=== PATIENT | male | born 1960 | race Caucasian/White ===

== ENCOUNTER 2024-12-06 11:31 | Emergency (ER) | payer OTHER, SELFPAY ==
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
--- OUTSIDE RECORDS SUMMARY | 2024-12-06 11:34 | XMS_ITS | Data Portability ---
Author Organization [facility] [employer], Main Office Address [address] [place] [address] Care Team Providers Care Healthcare Architect Name Role Phone JOSÉ MIGUEL VALERO Primary Care Provider [phone] Assessment Encounter Date Assessment Date Assessment LastModified by Organization Details LastModified Time 03/20/2024 03/20/2024 D/w pt about his findings and further options for him. Will refer pt to Cardio. Risks Vs benefits of Aspirin 81mg po bid with food explained until seen by Cardio. Pt agreed. Educated pt about alarming symptoms to monitor at home and get checked in ED. Pt verbalized understanding it. F/u in few weeks for Annual exam. [email or web address] Not available 03/20/2024 18:02:51 Plan of Treatment Reminders Order Date Submit Date Provider Last Modified By Organization Details Last Modified Time Details Appointments None recorded. Lab None recorded. Referral cardiologis t referral - ? A fib as per screening on 6 lead EKG. Please call patient to schedule an appointment . Thank you. 2024 025 [email or web address] Jl Hyatt MD, [address] [facility], [address], [place], [address], 10:25:37 Procedures None recorded. Surgeries None recorded. Imaging None recorded. Medication Orders None recorded. Patient TargetsNo targets recorded. Patient Instructions Encounter Date Encounter Id Patient Instructions Last Modified By Organization Details Last Modified Time 03/20/2024 [id number] starting a weigh t loss plan: care instructions [email or web address] Not available 03/20/2024 17:35:46 Reason for Referral Barrel Cleaner Referral for Ca rdiac arrhythmia ? A fib as per screening on 6 lead EKG ? A fib as per screening on 6 lead EKG. Please call patient to schedule an appointment. Thank you. Referring Physician: José Miguel Valero, Family Medicine, Encounter Date: 03/20/2024 Results Created Date Observation Date Name Description Value Unit Range Abnormal Flag Note LastModifiedBy Organization Detail LastModifiedTime 11/06/19 21 11/10/2020 TROPO EARNESTINE T, HIGH SENSI TIVIT Y (HS TIARA) troponin T, high sensitivity (hs tiara) 8 NG/L <23 Relat maría Risk: Optim al <6 ng/L; Moder ate: Males 6-22 ng/L, Femal es 6-14 ng/L; High: Males : >22 ng/L, Femal es: >14 ng/L. Refer ence Range : Males <23 ng/L, Femal es <15 ng/L. High Sensi tivit y Tropo earnestine T (hs-T nT) level s excee ding the gende r-spe cific 99th perce ntile upper refer ence limit (male s >22 ng/L, femal es >14 ng/L) may indic ate a recen t acute myoca rdial infar ction howev er, hs-Tn T resul ts shoul d alway s be asses sed in conju nctio n with the patie nt's medic al histo ry, clini kirsty exami natio n, sympt oms of cardi ac ische abiel, elect rocar diogr am resul ts, and/o r other cardi ovasc ular disea se (CVD) diagn ostic findi ngs. [place] tions in hs-Tn T can also be obser dameon in other heart condi tions . To disti nguis h betwe en acute and chron ic hs-Tn T eleva tions , seria l sampl ing and clini kirsty corre latio n is recom abner d for inter preta tion. There is liter ature suppo rting any hs-Tn T >=6 ng/L confe rs incre ased CVD relat maría risk (Olul eye OW, et al. Kim Epide miol. 2013; 23(2) :66-7 3; Selig er SL, et al. Circu latio n. 2017; 135(1 6):14 94-15 05). Not Available [facility] [address] [address] [place], [address], 11/10/2020 21:51:34 11/06/19 21 11/10/2020 B TYPE NATRI URETI C PEPTI DE (BNP) B type natriuretic peptide (BNP) 94 pg/mL <100 normal BNP level s incre ase with age in the gener al popul ation with the highe st value s seen in indiv idual s great er than 75 years of age. Refer ence: J. Am. Kristi. Cardi ol. 2002; 40:97 6-982 . Not Available Daily [facility] [address] [place], [address], 11/10/2020 21:51:33 11/06/19 21 11/10/2020 CBC (INCL UDES DIFF/ PLT) hematocrit 41.9 % 38.5-5 0.0 normal Not Available Daily [facility] [address] [address] [place], [address], 11/10/2020 21:51:31 11/06/19 21 11/10/2020 CBC (INCL UDES DIFF/ PLT) white blood cell count 5.8 thous and/u L 3.8-10 .8 normal Not Available Daily [facility] [address] [address] [place], [address], 11/10/2020 21:51:31 11/06/19 21 11/10/2020 CBC (INCL UDES DIFF/ PLT) red blood cell count 4.80 shantanu on/uL 4.20-5 .80 normal Not Available Daily [facility] [address], [address], 11/10/2020 21:51:31 11/06/19 21 11/10/2020 CBC (INCL UDES DIFF/ PLT) hemoglobin 13.8 g/dL 13.2-1 7.1 normal Not Available [facility] [address] [place], [address], 11/10/2020 21:51:31 11/06/19 21 11/10/2020 CBC (INCL UDES DIFF/ PLT) MCV 87.3 fL 80.0-1 00.0 normal Not Available [address], [address], 11/10/2020 21:51:31 11/06/19 21 11/10/2020 CBC (INCL UDES DIFF/ PLT) MCH 28.8 pg 27.0-3 3.0 normal Not Available [address], [address], 11/10/2020 21:51:31 11/06/19 21 11/10/2020 CBC (INCL UDES DIFF/ PLT) MCHC 32.9 g/dL 32.0-3 6.0 normal Not Available [address], [address], 11/10/2020 21:51:31 11/06/19 21 11/10/2020 CBC (INCL UDES DIFF/ PLT) RDW 13.2 % 11.0-1 5.0 normal Not Available [address], [address], 11/10/2020 21:51:31 11/06/19 21 11/10/2020 CBC (INCL UDES DIFF/ PLT) platelet count 255 thous and/u L 140-40 0 normal Not Available [address], [address], 11/10/2020 21:51:31 11/06/19 21 11/10/2020 CBC (INCL UDES DIFF/ PLT) MPV 9.7 fL 7.5-12 .5 normal Not Available [address], [address], 11/10/2020 21:51:31 11/06/19 21 11/10/2020 CBC (INCL UDES DIFF/ PLT) absolute neutrophils 3381 cells /uL 1500-7 800 normal Not Available [address], [address], 11/10/2020 21:51:31 11/06/19 21 11/10/2020 CBC (INCL UDES DIFF/ PLT) absolute lymphocytes 1566 cells /uL 850-39 00 normal Not Available [address], [address], 11/10/2020 21:51:31 11/06/19 21 11/10/2020 CBC (INCL UDES DIFF/ PLT) absolute monocytes 563 cells /uL 200-95 0 normal Not Available [address], [address], 11/10/2020 21:51:31 11/06/19 21 11/10/2020 CBC (INCL UDES DIFF/ PLT) absolute eosinophils 220 cells /uL 15-500 normal Not Available [address], [address], 11/10/2020 21:51:31 11/06/19 21 11/10/2020 CBC (INCL UDES DIFF/ PLT) absolute basophils 70 cells /uL 0-200 normal Not Available [address], [address], 11/10/2020 21:51:31 11/06/19 21 11/10/2020 CBC (INCL UDES DIFF/ PLT) neutrophils 58.3 % normal Not Available [address], [address], 11/10/2020 21:51:31 11/06/19 21 11/10/2020 CBC (INCL UDES DIFF/ PLT) lymphocytes 27.0 % normal Not Available [address], [address], 11/10/2020 21:51:31 11/06/19 21 11/10/2020 CBC (INCL UDES DIFF/ PLT) monocytes 9.7 % normal Not Available [address], [address], 11/10/2020 21:51:31 11/06/19 21 11/10/2020 CBC (INCL UDES DIFF/ PLT) eosinophils 3.8 % normal Not Available [address], [address], 11/10/2020 21:51:31 11/06/19 21 11/10/2020 CBC (INCL UDES DIFF/ PLT) basophils 1.2 % normal Not Available [address], [address], 11/10/2020 21:51:31 11/06/19 21 11/10/2020 CREAT INE KINAS E, TOTAL creatine kinase, total 237 U/L 44-196 high Not Available [address], [address], 11/10/2020 21:51:30 11/06/19 21 11/10/2020 COMPR EHENS MARÍA METAB OLIC PANEL glucose 95 mg/dL 65-99 normal Fasti ng refer ence inter jared Not Available [address], [address], 11/10/2020 21:51:30 11/06/19 21 11/10/2020 COMPR EHENS MARÍA METAB OLIC PANEL urea nitrogen (BUN) 17 mg/dL 7-25 normal Not Available [address], [address], 11/10/2020 21:51:30 11/06/19 21 11/10/2020 COMPR EHENS MARÍA METAB OLIC PANEL creatinine 0.90 mg/dL 0.70-1 .33 normal For patie nts >49 years of age, the refer ence limit for Creat inine is appro ximat royce 13% highe r for peopl e ident ified as Afric an-Am harsha n. Not Available [address] [address] [place], [address], 11/10/2020 21:51:30 11/06/19 21 11/10/2020 COMPR EHENS MARÍA METAB OLIC PANEL eGFR non-afr. bolivian 94 mL/mi n/1.7 3m2 > or = 60 normal Not Available [address], [address], 11/10/2020 21:51:30 11/06/19 21 11/10/2020 COMPR EHENS MARÍA METAB OLIC PANEL eGFR 109 mL/mi n/1.7 3m2 > or = 60 normal Not Available [address], [address], 11/10/2020 21:51:30 11/06/19 21 11/10/2020 COMPR EHENS MARÍA METAB OLIC PANEL BUN/creatini ne ratio not applic able (calc ) 6-22 Not Available [address], [address], 11/10/2020 21:51:30 11/06/19 21 11/10/2020 COMPR EHENS MARÍA METAB OLIC PANEL sodium 139 mmol/ L 135-14 6 normal Not Available [address], [address], 11/10/2020 21:51:30 11/06/19 21 11/10/2020 COMPR EHENS MARÍA METAB OLIC PANEL potassium 4.3 mmol/ L 3.5-5. 3 normal Not Available [address], [address], 11/10/2020 21:51:30 11/06/19 21 11/10/2020 COMPR EHENS MARÍA METAB OLIC PANEL chloride 104 mmol/ L 98-110 normal Not Available [address], [address], 11/10/2020 21:51:30 11/06/19 21 11/10/2020 COMPR EHENS MARÍA METAB OLIC PANEL carbon dioxide 24 mmol/ L 20-32 normal Not Available [address], [address], 11/10/2020 21:51:30 11/06/19 21 11/10/2020 COMPR EHENS MARÍA METAB OLIC PANEL calcium 9.5 mg/dL 8.6-10 .3 normal Not Available [address], [address], 11/10/2020 21:51:30 11/06/19 21 11/10/2020 COMPR EHENS MARÍA METAB OLIC PANEL protein, total 7.0 g/dL 6.1-8. 1 normal Not Available [address], [address], 11/10/2020 21:51:30 11/06/19 21 11/10/2020 COMPR EHENS MARÍA METAB OLIC PANEL albumin 4.6 g/dL 3.6-5. 1 normal Not Available [address], [address], 11/10/2020 21:51:30 11/06/19 21 11/10/2020 COMPR EHENS MARÍA METAB OLIC PANEL globulin 2.4 g/dL_ (calc ) 1.9-3. 7 normal Not Available [address], [address], 11/10/2020 21:51:30 11/06/19 21 11/10/2020 COMPR EHENS MARÍA METAB OLIC PANEL albumin/glob ulin ratio 1.9 (calc ) 1.0-2. 5 normal Not Available [address], [address], 11/10/2020 21:51:30 11/06/19 21 11/10/2020 COMPR EHENS MARÍA METAB OLIC PANEL bilirubin, total 0.7 mg/dL 0.2-1. 2 normal Not Available [address], [address], 11/10/2020 21:51:30 11/06/19 21 11/10/2020 COMPR EHENS MARÍA METAB OLIC PANEL alkaline phosphatase 57 U/L 35-144 normal Not Available [address], [address], 11/10/2020 21:51:30 11/06/19 21 11/10/2020 COMPR EHENS MARÍA METAB OLIC PANEL AST 22 U/L 10-35 normal Not Available [address], [address], 11/10/2020 21:51:30 11/06/19 21 11/10/2020 COMPR EHENS MARÍA METAB OLIC PANEL ALT 31 U/L 9-46 normal Not Available [address], [address], 11/10/2020 21:51:30 11/06/19 21 11/05/2020 elect rocar diogr am No observ ation record ed. [id number] [facility] [address] [place], [address], 05/04/2022 02:38:28 11/06/19 21 11/05/2020 elect rocar diogr am No observ ation record ed. [id number] [facility] [address] [place], [address], 05/04/2022 02:38:28 11/12/19 21 XR, ribs, bilat eral, w/ PA chest [facility] [address] [facility], [place] [address] Akshat che Name: ROVERTO PANDYA ion #: [id number] Sex: M : 1960 8 Locati on: RA1 Attend ing Physic celeste: ROBERT VALERO Orderi ng Physic celeste: ROBERT VALERO Exam Date: 11/12/19 11:55 AM Exam Name: XR RIBS BILAT W/PA CHEST 4V Admitt ing Diagno sis(es ): RADIOL OGY REPORT - FINAL EXAM: XR RIBS BILAT W/PA CHEST 4V HISTOR Y: PAIN W/O INJURY COMPAR HODAN: None Availa ble. TECHNI QUE: Fronta l view of the chest and multip le views of the bilate ral ribs were perfor med. FINDIN GS: No pneumo thorax , pulmon fan edema, or consol idativ e infilt rates. The heart is not enlarg ed. No eviden ce of rib or clavic ular fractu re. IMPRES CASSY: 1. No eviden ce of rib fractu re bilate rally. Page 1 of 2 [facility] Akshat che Name: ROVERTO PANDYA ion #: [id number] Sex: M : 1960 8 Exam Date: 11/12/19 11:55 AM Exam Name: XR RIBS BILAT W/PA CHEST 4V Admitt ing Diagno sis(es ): 2. No acute intrat horaci c proces s identi fied. Create d and electr onical ly signed by: Roverto guillen MD Signed Date: 11/12/19 1:54 PM (CT) Dictat ed by: Roverto guillen MD (CT) (CT) Page 2 of 2 [id number] [facility] (Imaging) [address] [place], [address], 05/04/2022 02:38:28 03/18/19 25 03/18/2024 elect jermaine diogr am No observ ation record ed. Not Available 2024 17:44:58 Result Notes Documentation Provider Name and Address Organization Details Recorded Time Xr, Ribs, Bilateral, W/ Pa Chest : [facility] [address] [place] [address] Patient Name: ROVERTO PANDYA Sex: M : 1960 Location: [facility] Attending Physician: JOSÉ MIGUEL VALERO Ordering Physician: JOSÉ MIGUEL VALERO Exam Date: 11/11/2020 11:55 AM Exam Name: XR RIBS BILAT W/PA CHEST 4V Admitting Diagnosis(es): RADIOLOGY REPORT - FINAL EXAM: XR RIBS BILAT W/PA CHEST 4V HISTORY: PAIN W/O INJURY COMPARISON: None Available. TECHNIQUE: Frontal view of the chest and multiple views of the bilateral ribs were performed. FINDINGS: No pneumothorax, pulmonary edema, or consolidative infiltrates. The heart is not enlarged. No evidence of rib or clavicular fracture. IMPRESSION: 1. No evidence of rib fracture bilaterally. Page 1 of 2 [facility] Patient Name: ROVERTO PANDYA Sex: M : 1960 Exam Date: 11/11/2020 11:55 AM Exam Name: XR RIBS BILAT W/PA CHEST 4V Admitting Diagnosis(es): 2. No acute intrathoracic process identified. Created and electronically signed by: Roverto Carcamo MD Signed Date: 11/11/2020 1:54 PM (CT) Dictated by: Roverto Carcamo MD (CT) (CT) Page 2 of 2 Not Available [facility] 05/04/2022 02:38:29 Problems Name Problem SNOMED Code Status Onset Date Resolution Date Notes Provider Name and Address Organization Details Recorded Time Acute sinusitis 34709132 Completed Not Available [facility] 3 02:33:57 Knee pain Completed Not Available [facility] 3 02:33:57 Sinusitis 30760120 Completed 201608/23/2016 Not Available [facility] 3 02:33:57 Obesity 254105060 Active 2016 Not Available [facility] 3 02:33:57 Primary erectile dysfunctio n 340830533 Active 2016 Not Available [facility] 3 02:33:57 Obstructiv e sleep apnea syndrome 66019775 Completed 201604/28/2020 Not Available [facility] 3 02:33:57 Dyslipidem ia 399058532 Completed 201904/28/2020 Not Available [facility] 3 02:33:57 Elevated blood-pres sure reading without diagnosis of hypertensi on 614338560 Completed 201904/28/2020 Not Available [facility] 3 02:33:57 Complainin g of erectile dysfunctio n Active 2019 Not Available [facility] 3 02:33:57 Hemorrhoid s 62741283 Active 2020 Not Available [facility] 3 02:33:57 Colorectal cancer detected by DNA-based stool screening 495822839 Active 2020 Not Available [facility] 3 02:33:57 Hypersomni a with sleep apnea 94267881 Active 2020 Not Available [facility] 3 02:33:58 Internal hemorrhoid s 39759761 Active 2020 Not Available [facility] 3 02:33:58 Cardiac arrhythmia 402580705 Active 2024 José Miguel Valero MD [address], [address], [place], [address] , [employer] [facility] [employer] 5 17:29:57 Impaired fasting glycemia 777268867 Active 2024 José Miguel Valero MD [address], [address], [place], [address] , [employer] [facility] [employer] [facility] 5 17:35:15 Problem Notes None recorded. Medical Equipment None Reported. Allergies No known drug allergies Medications Name Sig Start Date Stop Date Status Note LastModified by Organization Details LastModified Time tizanidin e 2 mg tablet Take 1 tablet every 12 hours by oral route as needed for 15 days. 03/20 completed Not Available Not Available Not Available hydrocort isone-pra moxine 2.5 %-1 % rectal cream apply after bowel movement and at bedtime as directed active Not Available Not Available No t Available azithromy roseann 250 mg tablet TAKE 2 TABLETS (500 MG) BY ORAL ROUTE ONCE DAILY FOR 1 DAY THEN 1 TABLET (250 MG) BY ORAL ROUTE ONCE DAILY FOR 4 DAYS active Not Available Not Available No t Available benzonata te 200 mg capsule TAKE 1 CAPSULE( S) EVERY 8 HOURS NEEDED FOR 10 DAYS. active Not Available Not Available No t Available hydrocodo ne 5 mg-acetam inophen 325 mg tablet active Not Available Not Available Not Available tramadol 50 mg tablet TAKE 1 TABLET BY MOUTH EVERY 8 HOURS NEEDED 06/06 completed Not Available Not Available Not Available ketorolac 10 mg tablet active Not Available Not Available Not Available hydrocort isone 2.5 % topical cream with perineal applicato r APPLY A THIN LAYER TO THE AFFECTED AREA(S) BY TOPICAL ROUTE 2 4 TIMES DAILY 03/20 completed Not Available Not Available Not Available amoxicill in 875 mg tablet TAKE 1 TABLET BY MOUTH EVERY 12 HOURS FOR 7 DAYS active Not Available Not Available No t Available cephalexi n 500 mg capsule active Not Available Not Available Not Available diclofena c sodium 75 mg tablet,de layed release Take 1 tablet every 12 hours by oral route as directed for 15 days. 03/20 completed Not Available Not Available Not Available Viagra 100 mg tablet Take 1 tablet every day by oral route as needed for 10 days. 06/06 completed Not Available Not Available Not Available ibuprofen 600 mg tablet Take 1 tablet every 8 hours by oral route as needed for 10 days. active Not Available Not Available No t Available methylpre dnisolone 4 mg tablets in a dose pack TAKE 6 TABLETS ON DAY 1 DIRECTED ON PACKAGE AND DECREASE BY 1 TAB EACH DAY FOR A TOTAL OF 6 DAYS 11/12 completed Not Available Not Available Not Available ketoconaz ole 2 % topical cream APPLY TO THE AFFECTED AREA(S) BY TOPICAL ROUTE ONCE DAILY active Apply thin layer to affected areas over chest for 1-2 weeks as directed . Not Available Not Available Not Available amoxicill in 875 mg-potass ium clavulana te 125 mg tablet TAKE 1 TABLET(S ) EVERY 12 HOURS FOR 10 DAYS. 01/18 completed Not Available Not Available Not Available tadalafil 20 mg tablet TAKE 1 TABLET BY MOUTH EVERY DAY DIRECTED active Take half to full tab, 30-40 mins before intercou rse. Do not use more than 1 pill in 24 hrs. Not Available Not Available Not Available Vitals Date Recorded Heart rate Provider Name an d Address Organization Details Last Updated DateTime 03/20/2024 88 /min Ivy Duncan [address] [facility], [facility] [address], [place], [address], [facility] 03/20/2024 18:02:11 Date Recorded Body height Body mass index (BMI) Body weight Body temperature Oxygen saturation Oxygen saturation in Arterial blood by Pulse oximetry Systolic And Diastolic Provider Name and Address Organization Details Last Updated DateTime 5 190.5 cm 32.9 kg/m2 685205. 79 g 97.2 [degF] 99 % 99 % 130/70 mm[Hg] Maritza De La Paz RN [facility] 5 17:25:53 Date Recorded Body mass index (BMI) Body height Oxygen saturation Oxygen saturation in Arterial blood by Pulse oximetry Heart rate Body temperature Body weight Systolic And Diastolic Provider Name and Address Organization Details Last Updated DateTime 1 34.6 kg/m2 185.42 cm 98 % 98 % 87 /min 96.8 [degF] 696834. 2 g 124/80 mm[Hg] Not Available [facility] 3 02:31:56 Date Recorded Body mass index (BMI) Body height Oxygen saturation Oxygen saturation in Arterial blood by Pulse oximetry Heart rate Body temperature Body weight Systolic And Diastolic Provider Name and Address Organization Details Last Updated DateTime 1 34.6 kg/m2 185.42 cm 97 % 97 % 94 /min 97.8 [degF] 220300. 2 g 106/78 mm[Hg] Not Available [facility] 3 02:31:56 Social History None recorded. Functional Status Question Answer Note LastModified by Organizat ion Details LastModified Time What is your occupation? [employer] [id number] Information not available 05/04/2022 Mental Status None recorded. Family History Nothing Reported. Medical History No medical history recorded. Immunizations Vaccine Type Date Status Note Provider Nam e and Address Organization Details Recorded Time Tdap 04/28/2020 completed Not Available [facility] 05/04/2022 02:38:00 Past Encounters Encounter ID Performer Location Encounter Start Date Encounter Closed Date Diagnosis/Indication Diagnosis SNOMED-CT Code Diagnosis ICD10 Code Diagnosis IMO Codes Diagnosis Note [id number] José Miguel Valero MD [address] [address] 11/05/2020 00:00:00 11/05/2020 11:08:50 [id number] José Miguel Valero MD [address] [address] 11/12/2020 00:00:00 11/12/2020 17:35:54 [id number] José Miguel Valero MD [address] [address] 02/11/2021 00:00:00 02/11/2021 09:40:43 [id number] José Miguel Valero MD [address] [address] 03/20/2024 17:08:44 03/20/2024 17:45:43 Cardiac arrhythmia 349378828 I49.9 ? Sinus Vs abnormal Obesity 050488270 E66.9 Impaired f asting glycemia 928803810 R73.01 Health Concerns Section Related Observation LastModified by Organization Detai ls LastModified Time None Recorded Concern Status LastModified by Organization Details LastModified Time None Recorded Advance Directives Directive None Recorded Payers Insurance Date Sequence Insurance Name Policy Number Policy Anthony Covered Member ID Anthony Member ID Guarantor Name 03/26/2024 1 [facility] [id number] Roverto Pandya [id number] Roverto Pandya 03/20/2024 1 [facility] [id number] Roverto Pandya [id number] Roverto Pandya Notes Date Note Type Note Provider Name and Address Organization Details Recorded Time 03/20/2024 text/html ACV: Pt had [facility] screening done on 03/13/23 and he had some labs and 6 lead EKG done. As per them, he had irregular heart rhythm and they asked him to get checked out for possible A fib. Pt denies any symptoms. No chest pain/sob/sweatin g/palpitations/n /v/d. Pt has never seen Cardio in the past. Pt wants to see Dr. Hyatt in [place]. Last visit in 02/2021. José Miguel Valero MD [address] [facility], [address] [address], [place], [address], [place] [facility] 03/20/2024 18:05:12
--- OUTSIDE RECORDS SUMMARY | 2024-12-06 11:34 | XMS_ITS | Clinical Summary ---
Author Organization [facility] Address [address] [place] [address] Care Team Providers Care Scuba Dive Training Instructor Name Role Phone Unavailable Primary Care Provider Unavailabl e Social History Tobacco Use Types Packs/Day Years Used Date Smoking Tobacco: Never Assessed Sex and Gender Information Value Date Recorded Sex Assigned at Not on file Legal Sex Male 5:16 PM CDT Gender Identity Not on file Sexual Orientation Not on file Plan of Treatment Health Maintenance Due Date Last Done Comments Colorectal Cancer Screening Colonoscopy (10 Years) 1960 Annual Physical 1965 Hepatitis C 1980 DTaP, Tdap and Td Vaccines ( 1 - Tdap) 1981 Pneumococcal Vaccine: 50+ Ye ars (1 of 1 - PCV) 2012 Zoster Vaccines (1 of 2) 2012 COVID-19 Vaccine (1 - 2023-2 5 season) 2024 RSV Immunization or 60+ Years (1 - 1-dose 75+ series) 2037 Meningococcal B Vaccine Aged Out No l onger eligible based on patient's age to complete this topic Meningococcal Vaccine Aged Out No susanna truong eligible based on patient's age to complete this topic RSV Immunizations Under 20 Months Aged Out No longer eligible based on patient's age to complete this topic
[2024-12-06 11:47] VITALS: BP 114/83; PULSE 85; RESP 18; TEMP 36.1; O2SAT 99
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
== END 2024-12-06 13:03 | disposition home or self-care (01) ==
PROVIDERS: PCP Family Medicine
DX: M79.622 Pain in left upper arm (principal); M25.512 Pain in left shoulder; M25.562 Pain in left knee; V53.5XXA Driver of pick-up truck or van injured in collision with car, pick-up truck or van in traffic accident, initial encounter; I48.91 Unspecified atrial fibrillation; Z79.01 Long term (current) use of anticoagulants
CPT/HCPCS: 73030; 73060; 73564; 99204; G0463